=== PATIENT | male | born 1995 | race American Indian/Alaskan Native ===

== ENCOUNTER 2017-02-27 21:44 | Emergency (ER) | payer SELFPAY ==
[2017-02-28] MEDS ORDERED: NACL 0.9% 500 ML IR ONE (03:04)
[2017-02-28] MEDS ORDERED: XYLOCAINE 1% 20 mL INFILTRATI ONE (03:14)
[2017-02-28] MEDS ORDERED: NACL 0.9% IR ONE (03:14)
[2017-02-28] MEDS ORDERED: TRIPLE ANTIBIOTIC TP ONE (03:14)
[2017-02-28] MEDS ORDERED: BOOSTRIX IM ONE (03:14)
[2017-02-28] MEDS ORDERED: MORPHINE IM ONE (03:15)
--- NOTE | 2017-02-28 03:23 | XRay Report ---
FINAL REPORT PROCEDURE: XR HAND 3 RT TECHNIQUE: RIGHT hand radiographs, AP, lateral, and oblique views. CPT 49230-EV HISTORY: Laceration to 2nd, 3rd and 4th digit; r/o FB COMPARISON: No prior studies are available for comparison. FINDINGS: Fracture (s) and/or Dislocation(s): None . Alignment: Normal . Joint space(s): Normal . Soft tissues: Normal . Bone mineralization: Normal . Foreign bodies: None . IMPRESSION: Normal Examination .
--- NOTE | 2017-02-28 05:51 | Emergency Department Report ---
HPI - General Chief Complaint: Wound/Laceration Time Seen by Provider: 02/28/17 03:00 - HPI HPI: 22-year-old male presents today with a laceration to his right hand that occurred at 2100 hrs. yesterday. Patient states he was cutting onions when he cut his index, middle and ring finger of his right hand. Describes his pain as 10 out of 10 and aching pain that comes and goes. Denies trying any medication for pain relief. His tetanus status is unknown. Denies fever, chills, nausea, vomiting, chest pain, shortness of breath, abdominal pain. Positive for bleeding. ED Past Medical Hx - Past Medical History Previous Medical History?: No - Surgical History Past Surgical History?: No - Social History Smoking Status: Never Smoker Substance Use Type: None - Medications Home Medications: Home Medications Medication Instructions Recorded Confirmed Last Taken Type Cyclobenzaprine [Flexeril 10 MG 10 mg PO TID PRN #20 tablet 11/04/15 Unknown Rx TAB] Ibuprofen [Motrin 800 MG tab] 800 mg PO Q8HR PRN #30 tablet 11/04/15 Unknown Rx Acetaminophen/Codeine [Tylenol 1 tab PO Q6H PRN #20 tab 02/28/17 Unknown Rx /Codeine # 3 tab] Cephalexin [Keflex] 500 mg PO Q6HR #20 capsule 02/28/17 Unknown Rx ED Review of Systems ROS: Stated complaint: RT HAND LACERATION/BLEEDING Other details as noted in HPI Constitutional: denies: chills, fever, malaise Eyes: denies: eye pain ENT: denies: ear pain, throat pain, congestion Respiratory: denies: cough, shortness of breath, wheezing Cardiovascular: denies: chest pain, palpitations Endocrine: no symptoms reported Gastrointestinal: denies: abdominal pain, nausea, vomiting Neurological: denies: headache, weakness, numbness, paresthesias Physical Exam - Physical Exam Vital Signs: Vital Signs 02/27/17 02/28/17 23:15 05:18 Temperature 98.6 F Pulse Rate 78 72 Respiratory 16 18 Rate Blood Pressure 141/83 Blood Pressure 128/76 [Left] O2 Sat by Pulse 95 97 Oximetry Physical Exam: GENERAL: The patient is well-developed and well-nourished. Patient is in NAD. HEAD: Normocephalic. Atraumatic. EYES: PERRL. NOSE: Normal nasal mucosa with no nasal discharge. THROAT: No erythema, swelling or exudates. NECK: Supple, nontender, without lymphadenopathy. CHEST/LUNGS: Clear to auscultation throughout. HEART/CARDIOVASCULAR: Regular rate and rhythm. No murmurs, rubs or gallops. ABDOMEN: Abdomen is soft, nontender. Bowel sounds normoactive. No guarding or rebound tenderness. RIGHT HAND: Full wrist and digit range of motion intact. Thumb oposition intact. FDP and FDS tendon intact. Normal sensation. 2 point discrimination intact. Peripheral pulses intact. Capillary refill less than 2 seconds. 1.5 cm laceration noted distal to the DIP joint of index finger. 1.5 cm laceration noted proximal to the DIP joint of middle finger. 1 cm laceration noted proximal to the DIP joint of ring finger. Positive for active bleeding. NEURO: Alert and oriented x 3. Normal gait. ED Course Vital Signs 02/27/17 02/28/17 23:15 05:18 Temperature 98.6 F Pulse Rate 78 72 Respiratory 16 18 Rate Blood Pressure 141/83 Blood Pressure 128/76 [Left] O2 Sat by Pulse 95 97 Oximetry - Laceration /Wound Repair Right Finger Wound Location: upper extremity Wound's Depth, Shape: linear Wound Explored: no foreign body removed Irrigated w/ Saline (ccs): 1,000 Betadine Prep?: Yes Anesthesia: 1% Lidocaine Volume Anesthetic (ccs): 12 Wound Repaired With: sutures Suture Size/Type: 5:0, proline Number of Sutures: 11 Layer Closure?: No Progress: The laceration located on the index finger, measured 1.5 cm and was subcutaneous and linear. The neurovascular exam was intact. Skin was prepped with Betadine. Digital block was obtained using 1% lidocaine. Wound was clean. It was irrigated with saline and explored. No apparent tendon or nerve injury. Unable to approximate the wound fully, therefore 3 loose 5-0 prolene sutures were used to close the wound. The laceration located on the middle finger, measured 1.5 cm and was subcutaneous and linear. The neurovascular exam was intact. Skin was prepped with Betadine. Digital block was obtained using 1% lidocaine. Wound was clean. It was irrigated with saline and explored. No apparent tendon or nerve injury. 5 5-0 prolene sutures were used to close the wound. The laceration located on the ring finger, measured 1 cm and was subcutaneous and linear. The neurovascular exam was intact. Skin was prepped with Betadine. Digital block was obtained using 1% lidocaine. Wound was clean. It was irrigated with saline and explored. No apparent tendon or nerve injury. 3 5-0 prolene sutures were used to close the wound. ED Medical Decision Making - Lab Data Vital Signs 02/27/17 02/28/17 23:15 05:18 Temperature 98.6 F Pulse Rate 78 72 Respiratory 16 18 Rate Blood Pressure 141/83 Blood Pressure 128/76 [Left] O2 Sat by Pulse 95 97 Oximetry - Radiology Data Radiology results: report reviewed Right hand x-rays: No fracture or dislocation. Normal alignment, joint space, soft tissue, bony mineralization. - Medical Decision Making 22-year-old male presents today with a laceration to his index, middle, ring finger that occurred at [address] Fairchild, in regards to inability to approximate the wound. Patient's wounds were examined by Dr. Farrell, he recommended closing the wound the best we can and referring the patient to plastics. 11 5-0 sutures were used to close the wounds. Patient is in no acute distress at this time. He will be discharged home and is encouraged to follow up with a primary care provider. He will be sent home on Tylenol 3 and Keflex and is encouraged to return to the emergency room for any worsening symptoms. Critical care attestation.: If time is entered above; I have spent that time in minutes in the direct care of this critically ill patient, excluding procedure time. ED Disposition Clinical Impression: Hand laceration Qualifiers: Encounter type: initial encounter Foreign body presence: without foreign body Laterality: right Qualified Code(s): S61.411A - Laceration without foreign body of right hand, initial encounter Disposition: DISCHARGED TO HOME OR SELFCARE Is pt being admited?: No Does the pt Need Aspirin: No Condition: Stable Instructions: Finger Laceration (ED), Suture Care (ED) Additional Instructions: Follow-up with primary care provider. Return to the emergency department Prescriptions: Acetaminophen/Codeine [Tylenol /Codeine # 3 tab] 1 tab PO Q6H PRN #20 tab PRN Reason: Pain Cephalexin [Keflex] 500 mg PO Q6HR #20 capsule Referrals: PRIMARY CARE, [Primary Care Provider] - 3-5 Days DIANNA EAGLE MD [Staff Physician] - 3-5 Days Forms: Work/School Release Form(ED) Time of Disposition: 06:01
[2017-02-28] MEDS ORDERED: NORCO 5/325 PO ONE (05:59)
[2017-02-28 06:32] VITALS: BP 132/76
== END 2017-02-28 06:35 | disposition home or self-care (01) ==
LOC: ED 21:44
DX: S61.411A Laceration without foreign body of right hand, initial encounter (principal); S61.210A Laceration without foreign body of right index finger without damage to nail, initial encounter; S61.212A Laceration without foreign body of right middle finger without damage to nail, initial encounter
CPT/HCPCS: 12002; 73130; 90471; 90715; 96372; 99283; J2270; A6250

== ENCOUNTER 2017-03-06 11:14 | Emergency (ER) | payer SELFPAY ==
[2017-03-06 12:20] VITALS: BP 131/86
--- NOTE | 2017-03-06 13:13 | Emergency Department Report ---
Suture/Staple Removal - HPI Chief Complaint: Laceration/Recheck/Suture Stated Complaint: SUTURE REMOVAL Time Seen by Provider: 03/06/17 12:59 When Sutures or Saqib Placed: 5-7 Days Ago Wound Location: R index, middle, long finger ED Review of Systems ROS: Stated complaint: SUTURE REMOVAL Other details as noted in HPI Comment: All other systems reviewed and negative Constitutional: denies: chills, fever Musculoskeletal: other (denies decrease in rom, denies pain ) Skin: as per HPI, other (denies drainage ). denies: change in color ED Past Medical Hx - Past Medical History Previous Medical History?: Yes Additional medical history: right hand lac - Surgical History Past Surgical History?: No - Social History Smoking Status: Current Every Day Smoker Substance Use Type: None - Medications Home Medications: Home Medications Medication Instructions Recorded Confirmed Last Taken Type Cyclobenzaprine [Flexeril 10 MG 10 mg PO TID PRN #20 tablet 11/04/15 Unknown Rx TAB] Ibuprofen [Motrin 800 MG tab] 800 mg PO Q8HR PRN #30 tablet 11/04/15 Unknown Rx Acetaminophen/Codeine [Tylenol 1 tab PO Q6H PRN #20 tab 02/28/17 Unknown Rx /Codeine # 3 tab] Cephalexin [Keflex] 500 mg PO Q6HR #20 capsule 02/28/17 Unknown Rx Suture Removal Exam - Exam General: Vital signs noted. No distress. Alert and acting appropriately. Full ROM of R hand. No tenderness or drainage. Sutures intact. Wound: No Pathologic Erythema, No Tenderness, No Drainage, No Pus, No Wound Dehiscence Other Systems: All other systems reviewed and are unremarkable. ED Course Vital Signs 03/06/17 12:16 Temperature 98.6 F Pulse Rate 75 Respiratory 18 Rate Blood Pressure 131/86 O2 Sat by Pulse 99 Oximetry - Reevaluation(s) Reevaluation #1: 03/06/17 13:13 PT's sutures removed by electronic data interchange specialist. wounds remains intact. pt tolerated procedure well. - Pulse Oximetry Interpretation Digit-Finger Initial Pulse Oximetry Readin Actions Taken: none ED Recheck MDM - Differential Diagnosis Suture/Staple Removal suture removal Critical Care Time: No Critical care attestation.: If time is entered above; I have spent that time in minutes in the direct care of this critically ill patient, excluding procedure time. ED Disposition Clinical Impression: Visit for suture removal Disposition: DISCHARGED TO HOME OR SELFCARE Is pt being admited?: No Does the pt Need Aspirin: No Condition: Stable Instructions: Suture Removal (ED) Referrals: GILDA BRIGGS MD, PHD [Staff Physician] - 3-5 Days Forms: Work/School Release Form(ED) Time of Disposition: 13:14
== END 2017-03-06 13:19 | disposition home or self-care (01) ==
LOC: ED 11:14
DX: Z48.02 Encounter for removal of sutures (principal); F17.200 Nicotine dependence, unspecified, uncomplicated

== ENCOUNTER 2017-10-29 12:59 | Emergency (ER) | payer SELFPAY | END 2017-10-29 14:00 | disposition left against medical advice (07) | LOC: ED 12:59 | DX: Z53.21 Procedure and treatment not carried out due to patient leaving prior to being seen by health care provider (principal) ==

== ENCOUNTER 2018-12-11 08:51 | Emergency (ER) | payer SELFPAY ==
[2018-12-11] MEDS ORDERED: TYLENOL PO ONE (09:08)
--- NOTE | 2018-12-11 09:11 | Emergency Department Report ---
HPI - General Chief Complaint: Headache Time Seen by Provider: 12/11/18 09:08 - HPI HPI: 23-year-old -[place] male presents to the emergency department with the complaint of a 4 to five-day history of a left-sided throbbing headache that he also feels behind his eye. He says that when he leans forward he feels like all of the blood is rushing to his head. He also says that sometimes when he is driving he feels like he has some blurry vision. He denies any fever, nausea, vomiting or any other neurological deficits. He has not taken anything for his symptoms prior to presentation. He does not have a primary care physician. No recent travel or sick contacts at home. He is an occasional tobacco smoker but denies any illicit drug use. ED Past Medical Hx - Past Medical History Previous Medical History?: No Additional medical history: right hand lac - Surgical History Past Surgical History?: No - Social History Smoking Status: Never Smoker Substance Use Type: None - Medications Home Medications: Home Medications Medication Instructions Recorded Confirmed Last Taken Type Cyclobenzaprine [Flexeril 10 MG 10 mg PO TID PRN #20 tablet 11/04/15 Unknown Rx TAB] Acetaminophen/Codeine [Tylenol 1 tab PO Q6H PRN #20 tab 02/28/17 Unknown Rx /Codeine # 3 tab] cephALEXin [Keflex] 500 mg PO Q6HR #20 capsule 02/28/17 Unknown Rx HYDROcodone/APAP 5-325 [[place] 1 each PO Q6HR PRN #10 tablet 12/11/18 Unknown Rx 5/325] Ibuprofen [Motrin 800 MG tab] 800 mg PO Q8HR PRN #30 tablet 12/11/18 Unknown Rx ED Review of Systems ROS: Stated complaint: HEADACHE Other details as noted in HPI Comment: All other systems reviewed and negative Constitutional: denies: chills, fever Eyes: vision change (occasional blurry vision). denies: eye pain ENT: denies: ear pain, throat pain Respiratory: denies: cough, shortness of breath Cardiovascular: denies: chest pain, palpitations Gastrointestinal: denies: abdominal pain, vomiting Genitourinary: denies: dysuria, discharge Musculoskeletal: denies: back pain, arthralgia Skin: denies: rash, lesions Neurological: headache. denies: weakness Physical Exam - Physical Exam Vital Signs: Vital Signs 12/11/18 08:54 Temperature 97.7 F Pulse Rate 88 Respiratory 16 Rate Blood Pressure 146/83 O2 Sat by Pulse 99 Oximetry Physical Exam: GENERAL: The patient is well-developed well-nourished. HEENT: Normocephalic. Atraumatic. Patient has moist mucous membranes. EYES: Extraocular motions are intact. Pupils are equal and reactive to light bilaterally. No nystagmus. NECK: Supple. Trachea is midline. CHEST/LUNGS: Clear to auscultation. There is no respiratory distress noted. HEART/CARDIOVASCULAR: Regular. There is no tachycardia. There is no obvious murmur. ABDOMEN: There is no abdominal distention. SKIN: Skin is warm and dry. NEURO: The patient is awake, alert, and oriented. The patient is cooperative. The patient has no focal neurologic deficits. The patient has normal speech. Cranial nerves II through XII grossly intact. MUSCULOSKELETAL: There is no tenderness or deformity. There is no limitation range of motion. There is no evidence of acute injury. ED Course Vital Signs 12/11/18 08:54 Temperature 97.7 F Pulse Rate 88 Respiratory 16 Rate Blood Pressure 146/83 O2 Sat by Pulse 99 Oximetry ED Medical Decision Making - Radiology Data Radiology results: report reviewed CT HEAD WITHOUT CONTRAST: HISTORY: Headache. TECHNIQUE: Sequential 2.5mm CT images. COMPARISON: 09/12/16. FINDINGS: Cerebral Parenchyma: An 8 mm focal area of decreased density in the right parietal white matter is unchanged since 2016. The etiology of this is unclear. This could represent a chronic focal infarct. The remaining brain parenchyma demonstrates normal attenuation. The taylor-white interface is well defined. Cerebellum: Within normal limits. Brainstem: Within normal limits. Ventricles: Normal. Sella: Normal. Extra-axial spaces: Normal. Basal Cisterns: Normal. Intracranial Hemorrhage: None. Midline Shift: None. Calvarium: Normal. Sinuses: Normal. Mastoid Air Cells: Normal. Visualized Orbits: Normal. IMPRESSION: No acute intracranial process is identified. 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 Transcribed By: TTR Dictated By: MERVAT SANCHEZ JR, MD Electronically Authenticated By: MERVAT SANCHEZ JR, MD Signed Date/Time: 12/11/18 9720 Critical care attestation.: If time is entered above; I have spent that time in minutes in the direct care of this critically ill patient, excluding procedure time. ED Disposition Clinical Impression: Headache Qualifiers: Headache type: unspecified Headache chronicity pattern: unspecified pattern Intractability: not intractable Qualified Code(s): R51 - Headache Disposition: DC-01 TO HOME OR SELFCARE Is pt being admited?: No Condition: Stable Instructions: Acute Headache (ED) Additional Instructions: Please follow up with a primary care physician in the next few days. I am also giving him a referral for a local neurologist, to follow-up regarding her headaches. Return to the emergency Department with any worsening of your symptoms or any acute distress. You have been prescribed a medication that can be sedating. Therefore, this medication cannot be taken prior to driving, working, being responsible for children, and cannot be mixed with alcohol of any quantity. Prescriptions: HYDROcodone/APAP 5-325 [[place] 5/325] 1 each PO Q6HR PRN #10 tablet PRN Reason: Pain Ibuprofen [Motrin 800 MG tab] 800 mg PO Q8HR PRN #30 tablet PRN Reason: pain Referrals: MARY MULLIGAN DO [Staff Physician] - 2-3 Days VETO CESAR MD [Staff Physician] - 2-3 Days [facility] [Outside] - 2-3 Days Time of Disposition: 10:16
--- NOTE | 2018-12-11 09:52 | Cat Scan Report ---
CT HEAD WITHOUT CONTRAST: HISTORY: Headache. TECHNIQUE: Sequential 2.5mm CT images. COMPARISON: 09/12/16. FINDINGS: Cerebral Parenchyma: An 8 mm focal area of decreased density in the right parietal white matter is unchanged since 2016. The etiology of this is unclear. This could represent a chronic focal infarct. The remaining brain parenchyma demonstrates normal attenuation. The taylor-white interface is well defined. Cerebellum: Within normal limits. Brainstem: Within normal limits. Ventricles: Normal. Sella: Normal. Extra-axial spaces: Normal. Basal Cisterns: Normal. Intracranial Hemorrhage: None. Midline Shift: None. Calvarium: Normal. Sinuses: Normal. Mastoid Air Cells: Normal. Visualized Orbits: Normal. IMPRESSION: No acute intracranial process is identified. 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
[2018-12-11 11:55] VITALS: BP 143/88
== END 2018-12-11 11:29 | disposition home or self-care (01) ==
LOC: ED 08:51
DX: R51 Headache (principal); H57.89 Other specified disorders of eye and adnexa
CPT/HCPCS: 70450

== ENCOUNTER 2019-05-10 12:48 | Emergency (ER) | payer SELFPAY ==
[2019-05-10 13:03] VITALS: BP 125/79
--- NOTE | 2019-05-10 14:02 | Emergency Department Report ---
ED Lower Extremity HPI - General Chief Complaint: Extremity Injury, Lower Stated Complaint: LT LEG PAIN Time Seen by Provider: 05/10/19 13:51 Source: patient Mode of arrival: Ambulatory Limitations: No Limitations - History of Present Illness MD Complaint: knee injury, ankle injury, fall -: days(s) (3) Place: work Severity: moderate Severity scale (0 -10): 4 Improves With: nothing Context: fall - Related Data Previous Rx's Medication Instructions Recorded Last Taken Type Cyclobenzaprine [Flexeril 10 MG 10 mg PO TID PRN #20 tablet 11/04/15 Unknown Rx TAB] Acetaminophen/Codeine [Tylenol 1 tab PO Q6H PRN #20 tab 02/28/17 Unknown Rx /Codeine # 3 tab] cephALEXin [Keflex] 500 mg PO Q6HR #20 capsule 02/28/17 Unknown Rx HYDROcodone/APAP 5-325 [[place] 1 each PO Q6HR PRN #10 tablet 12/11/18 Unknown Rx 5/325] Ibuprofen [Motrin 800 MG tab] 800 mg PO Q8HR PRN #30 tablet 12/11/18 Unknown Rx Allergies Allergy/AdvReac Type Severity Reaction Status Date / Time No Known Allergies Allergy Verified 05/10/19 13:03 ED Review of Systems ROS: Stated complaint: LT LEG PAIN Other details as noted in HPI Comment: All other systems reviewed and negative Constitutional: denies: chills, fever Respiratory: denies: cough, shortness of breath Cardiovascular: denies: chest pain Gastrointestinal: denies: abdominal pain, nausea, vomiting Musculoskeletal: denies: back pain ED Past Medical Hx - Past Medical History Additional medical history: right hand lac - Social History Smoking Status: Never Smoker Substance Use Type: None - Medications Home Medications: Home Medications Medication Instructions Recorded Confirmed Last Taken Type Cyclobenzaprine [Flexeril 10 MG 10 mg PO TID PRN #20 tablet 11/04/15 Unknown Rx TAB] Acetaminophen/Codeine [Tylenol 1 tab PO Q6H PRN #20 tab 02/28/17 Unknown Rx /Codeine # 3 tab] cephALEXin [Keflex] 500 mg PO Q6HR #20 capsule 02/28/17 Unknown Rx HYDROcodone/APAP 5-325 [[place] 1 each PO Q6HR PRN #10 tablet 12/11/18 Unknown Rx 5/325] Ibuprofen [Motrin 800 MG tab] 800 mg PO Q8HR PRN #30 tablet 12/11/18 Unknown Rx ED Physical Exam - General Limitations: No Limitations General appearance: alert, in no apparent distress - Head Head exam: Present: atraumatic, normocephalic, normal inspection - Eye Eye exam: Present: normal appearance, PERRL - ENT ENT exam: Present: normal exam, normal orophraynx, mucous membranes moist - Neck Neck exam: Present: normal inspection - Respiratory Respiratory exam: Present: normal lung sounds bilaterally. Absent: chest wall tenderness - Cardiovascular Cardiovascular Exam: Present: regular rate - GI/Abdominal GI/Abdominal exam: Present: soft. Absent: distended, tenderness, guarding - Expanded Lower Extremity Exam Left Knee exam: Present: normal inspection, full ROM, tenderness. Absent: swelling, abrasion, laceration Lower Leg exam: Present: normal inspection, full ROM. Absent: tenderness Ankle exam: Present: normal inspection, full ROM, tenderness. Absent: swelling Gait: Positive: observed and limited by pain - Back Exam Back exam: Present: normal inspection, full ROM. Absent: CVA tenderness (R) - Neurological Exam Neurological exam: Present: alert, oriented X3, CN II-XII intact, reflexes normal. Absent: motor sensory deficit - Skin Skin exam: Present: warm, intact, normal color ED Course Vital Signs 05/10/19 13:02 Temperature 98.3 F Pulse Rate 88 Respiratory 16 Rate Blood Pressure 125/79 O2 Sat by Pulse 97 Oximetry ED Lower Extremity MDM - Radiology Data Radiology results: image reviewed interpreted by me: Left knee and left ankle x-ray is negative for acute finding. Critical care attestation.: If time is entered above; I have spent that time in minutes in the direct care of this critically ill patient, excluding procedure time. ED Disposition Clinical Impression: Knee pain, left, Ankle pain, left Disposition: DC-01 TO HOME OR SELFCARE Is pt being admited?: No Condition: Stable Instructions: Knee Sprain (ED), Ankle Sprain (ED) Referrals: [facility] [Provider Group] - 3-5 Days
--- NOTE | 2019-05-10 15:04 | XRay Report ---
LEFT KNEE 3 VIEWS INDICATION / CLINICAL INFORMATION: fall. COMPARISON: None available. FINDINGS: No fracture, dislocation, or joint effusion. No significant degenerative change. IMPRESSION: Negative exam. Signer Name: Giselle Sepulveda MD Signed: 05/10/2019 2:59 PM Workstation Name: [id number]
--- NOTE | 2019-05-10 15:05 | XRay Report ---
LEFT ANKLE, 3 VIEWS INDICATION / CLINICAL INFORMATION: fall,. COMPARISON: None Findings: No fracture, dislocation, or soft tissue abnormality noted. IMPRESSION: Negative exam. Signer Name: Giselle Sepulveda MD Signed: 05/10/2019 3:01 PM Workstation Name: [id number]
== END 2019-05-10 15:42 | disposition home or self-care (01) ==
LOC: ED 12:48
DX: M25.562 Pain in left knee (principal); M25.572 Pain in left ankle and joints of left foot; Z98.890 Other specified postprocedural states

== ENCOUNTER 2019-08-09 09:23 | Emergency (ER) | payer SELFPAY ==
[2019-08-09] MEDS ORDERED: ZOFRAN ODT PO ONE (09:36)
[2019-08-09] MEDS ORDERED: IBUPROFEN PO ONE (09:36)
--- NOTE | 2019-08-09 09:52 | Emergency Department Report ---
ED General Adult HPI - General Chief complaint: Nausea/Vomiting/Diarrhea Stated complaint: FLU LIKE SYM/CHILLS Time Seen by Provider: 08/09/19 09:31 Source: patient Mode of arrival: Ambulatory Limitations: No Limitations - History of Present Illness Initial comments: This is a 24-year-old male nontoxic, well nourished in appearance, no acute signs of distress presents to the ED with c/o of nausea, vomiting, chills, body aches, rhinorrhea, nasal congestion x2 days. Patient denies any cough. Denies any abdominal or back pains. Deneis any urinary symptoms. Patient denies any sick contacts. Patient denies any recent travels, long car, recent hospital stays. Patient denies any calf pain or calf tenderness. Patient denies any chest pain, short of breath, fever, nausea, vomiting, hemoptysis, numbness, tingling, headache or stiff neck. Denies any allergies or PMH. -: days(s) (2) Radiation: non-radiation Consistency: constant Improves with: none Worsens with: none Associated Symptoms: fever/chills, nausea/vomiting. denies: confusion, chest pain, cough, diaphoresis, headaches, loss of appetite, malaise, rash, seizure, shortness of breath, syncope, weakness - Related Data Previous Rx's Medication Instructions Recorded Last Taken Type Cyclobenzaprine [Flexeril 10 MG 10 mg PO TID PRN #20 tablet 11/04/15 Unknown Rx TAB] Acetaminophen/Codeine [Tylenol 1 tab PO Q6H PRN #20 tab 02/28/17 Unknown Rx /Codeine # 3 tab] cephALEXin [Keflex] 500 mg PO Q6HR #20 capsule 02/28/17 Unknown Rx HYDROcodone/APAP 5-325 [[place] 1 each PO Q6HR PRN #10 tablet 12/11/18 Unknown Rx 5/325] Ibuprofen [Motrin 800 MG tab] 800 mg PO Q8HR PRN #30 tablet 12/11/18 Unknown Rx Naproxen [Naprosyn] 500 mg PO BID #14 tablet 05/10/19 Unknown Rx Ibuprofen [Motrin] 600 mg PO Q8H PRN #20 tablet 08/09/19 Unknown Rx Ondansetron [Zofran Odt] 4 mg PO Q8HR PRN #20 tab.rapdis 08/09/19 Unknown Rx Allergies Allergy/AdvReac Type Severity Reaction Status Date / Time No Known Allergies Allergy Verified 08/09/19 09:24 ED Review of Systems ROS: Stated complaint: FLU LIKE SYM/CHILLS Other details as noted in HPI Constitutional: chills. denies: fever Eyes: denies: eye pain, eye discharge, vision change ENT: denies: ear pain, throat pain Respiratory: denies: cough, shortness of breath, wheezing Cardiovascular: denies: chest pain, palpitations Endocrine: no symptoms reported Gastrointestinal: nausea, vomiting. denies: abdominal pain, diarrhea, constipation, hematemesis, melena, hematochezia Genitourinary: denies: urgency, dysuria Musculoskeletal: denies: back pain, joint swelling, arthralgia Skin: denies: rash, lesions Neurological: denies: headache, weakness, paresthesias Psychiatric: denies: anxiety, depression Hematological/Lymphatic: denies: easy bleeding, easy bruising ED Past Medical Hx - Past Medical History Previous Medical History?: No Additional medical history: right hand lac - Surgical History Past Surgical History?: No - Social History Smoking Status: Never Smoker Substance Use Type: None - Medications Home Medications: Home Medications Medication Instructions Recorded Confirmed Last Taken Type Cyclobenzaprine [Flexeril 10 MG 10 mg PO TID PRN #20 tablet 11/04/15 Unknown Rx TAB] Acetaminophen/Codeine [Tylenol 1 tab PO Q6H PRN #20 tab 02/28/17 Unknown Rx /Codeine # 3 tab] cephALEXin [Keflex] 500 mg PO Q6HR #20 capsule 02/28/17 Unknown Rx HYDROcodone/APAP 5-325 [[place] 1 each PO Q6HR PRN #10 tablet 12/11/18 Unknown Rx 5/325] Ibuprofen [Motrin 800 MG tab] 800 mg PO Q8HR PRN #30 tablet 12/11/18 Unknown Rx Naproxen [Naprosyn] 500 mg PO BID #14 tablet 05/10/19 Unknown Rx Ibuprofen [Motrin] 600 mg PO Q8H PRN #20 tablet 08/09/19 Unknown Rx Ondansetron [Zofran Odt] 4 mg PO Q8HR PRN #20 tab.rapdis 08/09/19 Unknown Rx ED Physical Exam - General Limitations: No Limitations General appearance: alert, in no apparent distress - Head Head exam: Present: atraumatic, normocephalic - Eye Eye exam: Present: normal appearance - Neck Neck exam: Present: normal inspection, full ROM. Absent: tenderness, meningismus, lymphadenopathy - Respiratory Respiratory exam: Present: normal lung sounds bilaterally. Absent: respiratory distress, wheezes, rales, rhonchi, stridor, chest wall tenderness, accessory muscle use, decreased breath sounds, prolonged expiratory - Cardiovascular Cardiovascular Exam: Present: regular rate, normal rhythm, normal heart sounds. Absent: irregular rhythm, systolic murmur, diastolic murmur, rubs, gallop - GI/Abdominal GI/Abdominal exam: Present: soft, normal bowel sounds. Absent: distended, tenderness, guarding, rebound, rigid, diminished bowel sounds - Rectal Rectal exam: Present: deferred - Extremities Exam Extremities exam: Present: normal inspection, full ROM - Back Exam Back exam: Present: normal inspection, full ROM - Neurological Exam Neurological exam: Present: alert, oriented X3, normal gait - Psychiatric Psychiatric exam: Present: normal affect, normal mood - Skin Skin exam: Present: warm, dry, intact, normal color. Absent: rash ED Course Vital Signs 08/09/19 09:25 Temperature 98.8 F Pulse Rate 112 H Respiratory 18 Rate Blood Pressure 145/77 O2 Sat by Pulse 97 Oximetry - Reevaluation(s) Reevaluation #1: 08/09/19 10:47 Patient is speaking in full sentences with no signs of distress noted. ED Medical Decision Making - Lab Data Result diagrams: 08/09/19 09:49 08/09/19 09:49 - Medical Decision Making This is a 24-year-old male that presents with flu like symptoms and nausea and vomiting. Patient is stable and was examined by me. There is no abdominal tenderness. Labs obtained unremarkable. UA obtained. Negative flu swab. Patient is notified of the report with no questions noted by the patient. Vital signs a re stable prior to discharge. Patient received IV fluids, Zofran and Motrin in the ED which patient stated symptoms has resovled and subsided. A by mouth challenge has been obtained and patient tolerated well with no nausea vomiting. Patient was also instructed to Follow-up with a primary care doctor in 3-5 days or if symptoms worsen and continue return to emergency room as soon as possible. At time of discharge, the patient does not seem toxic or ill in appearance. No acute signs of distress noted. Patient agrees to discharge treatment plan of care. No further questions noted by the patient. - Differential Diagnosis viral gastritis, influenza, common cold Critical care attestation.: If time is entered above; I have spent that time in minutes in the direct care of this critically ill patient, excluding procedure time. ED Disposition Clinical Impression: Flu-like symptoms Nausea & vomiting Qualifiers: Vomiting type: unspecified Vomiting Intractability: non-intractable Qualified Code(s): R11.2 - Nausea with vomiting, unspecified Disposition: DC-01 TO HOME OR SELFCARE Is pt being admited?: No Does the pt Need Aspirin: No Condition: Stable Additional Instructions: Follow-up with a primary care doctor in 3-5 days or if symptoms worsen and continue return to emergency room as soon as possible. Increased rest, hydration, and take Motrin/Tylenol as prescribed for fever episode. Prescriptions: Ibuprofen [Motrin] 600 mg PO Q8H PRN #20 tablet PRN Reason: Pain Ondansetron [Zofran Odt] 4 mg PO Q8HR PRN #20 tab.rapdis PRN Reason: Nausea Referrals: PRIMARY CARE, [Primary Care Provider] - 3-5 Days FROYLAN SKELTON MD [Staff Physician] - 3-5 Days [facility] [Outside] - 3-5 Days [facility] [Outside] - 3-5 Days Forms: Work/School Release Form(ED)
[2019-08-09 10:23] LABS: Hematocrit 49.3 % (35.5-45.6); Hemoglobin 17.2 gm/dl (11.8-15.2); Mean Corpuscular HGB Conc 35 % (32-34); Mean Corpuscular Volume 83 fl (84-94); Platelet Count 271 K/mm3 (140-440); Red Cell Distribution Width 13.4 % (13.2-15.2)
[2019-08-09 10:25] LABS: Alanine Aminotransferase 15 units/L (7-56); Albumin 4.1 g/dL (3.9-5); BUN/Creatinine Ratio 8; Blood Urea Nitrogen 8 mg/dL (9-20); Calcium 9.1 mg/dL (8.4-10.2); Hemolysis Index 33
[2019-08-09 10:48] LABS: Bilirubin,Urine SM (Negative); Blood,Urine NEG (Negative); Color,Urine Amber (Yellow); Mucus,Urine 2+ /HPF
[2019-08-09] MEDS ORDERED: NACL 0.9% 1000 ML 1,000 ML IV ONE (10:50)
[2019-08-09 10:54] LABS: Ictotest,Urine Negative (Negative)
[2019-08-09 10:56] LABS: Basophils % (Manual) 0 % (0.0-1.8); Eosinophils % (Manual) 0 % (0.0-4.3); Total Cells Counted 100
[2019-08-09 10:57] LABS: Platelet Estimate Consistent w Auto; RBC Morphology Normal
[2019-08-09 12:07] VITALS: BP 135/68
== END 2019-08-09 12:07 | disposition home or self-care (01) ==
LOC: ED 09:35
DX: R11.2 Nausea with vomiting, unspecified (principal); Z79.899 Other long term (current) drug therapy
CPT/HCPCS: 36415; 80053; 81001; 83690; 85007; 85025; 87400; 96360; 99283; J7030; Q0162

== ENCOUNTER 2019-11-24 12:48 | Emergency (ER) | payer SELFPAY ==
[2019-11-24] MEDS ORDERED: ACETAMINOPHEN 500 MG TAB PO ONE (13:42)
[2019-11-24] MEDS ORDERED: FAMOTIDINE 20 MG TAB PO ONE (13:42)
[2019-11-24] MEDS ORDERED: IBUPROFEN 400 MG TAB PO ONE (13:42)
--- NOTE | 2019-11-24 13:42 | Emergency Department Report ---
Chief Complaint: Upper Respiratory Infection Stated Complaint: cp muscle aches Time Seen by Provider: 11/24/19 13:41 - HPI History of Present Illness: 24 y/o male with no pe dvt risk factors, perc neg, p/w migratory chest pain + cough appears well "wants to be sure its not my heart" ekg, xr chest pain meds reassess Vital Signs 11/24/19 13:39 Temperature 97.6 F Pulse Rate 87 Respiratory 18 Rate Blood Pressure 151/85 O2 Sat by Pulse 98 Oximetry MSE screening note: Focused history and physical exam performed. Due to findings the following was ordered: ED Disposition for MSE Condition: Stable
--- NOTE | 2019-11-24 14:12 | XRay Report ---
CHEST 2 VIEWS INDICATION / CLINICAL INFORMATION: Chest pain. COMPARISON: None available. FINDINGS: SUPPORT DEVICES: None. HEART / MEDIASTINUM: No significant abnormality. LUNGS / PLEURA: No significant pulmonary or pleural abnormality. No pneumothorax. ADDITIONAL FINDINGS: No significant additional findings. IMPRESSION: 1. No acute findings. Signer Name: Lucien Garnica MD Signed: 11/24/2019 2:08 PM Workstation Name: [id number]
[2019-11-24] MEDS ORDERED: BENZONATATE 100 MG CAP PO ONE (16:48)
[2019-11-24] MEDS ORDERED: IBUPROFEN 800 MG TAB PO ONE (16:48)
--- NOTE | 2019-11-24 17:40 | Emergency Department Report ---
Upper Respiratory HPI - HPI Chief Complaint: Upper Respiratory Infection Stated Complaint: CP Time Seen by Provider: 11/24/19 15:54 Duration: 4 Days URI Symptoms: Rhinorrhea: Yes, Sore Throat: No, Ear Pain: No, Cough: Yes, Shortness of Breath: No, Sick Contacts: No, Unable to Take Fluids: No, Urine Output Abnormal: No, Listless Behavior: No Other History: This is a 24-year-old male nontoxic, well nourished in appearance, no acute signs of distress presents to the ED with c/o of productive cough, rhinorrhea, nasal congestion x4 days. Patient stated started to have chest pains only during coughing and palpation x1 day. Otherwise, patient denies any chest pains during rest. Patient describes productive cough as yellow mucus production. Patient denies any sick contacts. Patient denies any recent travels, long car, recent hospital stays. Patient denies any calf pain or calf tenderness. Patient denies any short of breath, fever, chills, nausea, vomiting, hemoptysis, numbness, tingling, headache or stiff neck. Patient denies any allergies or significant PMH. - Home Meds and Allergies Home Medications: Previous Rx's Medication Instructions Recorded Last Taken Type Cyclobenzaprine [Flexeril 10 MG 10 mg PO TID PRN #20 tablet 11/04/15 Unknown Rx TAB] Acetaminophen/Codeine [Tylenol 1 tab PO Q6H PRN #20 tab 02/28/17 Unknown Rx /Codeine # 3 tab] cephALEXin [Keflex] 500 mg PO Q6HR #20 capsule 02/28/17 Unknown Rx HYDROcodone/APAP 5-325 [[place] 1 each PO Q6HR PRN #10 tablet 12/11/18 Unknown Rx 5/325] Ibuprofen [Motrin 800 MG tab] 800 mg PO Q8HR PRN #30 tablet 12/11/18 Unknown Rx Naproxen [Naprosyn] 500 mg PO BID #14 tablet 05/10/19 Unknown Rx Ibuprofen [Motrin] 600 mg PO Q8H PRN #20 tablet 08/09/19 Unknown Rx Ondansetron [Zofran Odt] 4 mg PO Q8HR PRN #20 tab.rapdis 08/09/19 Unknown Rx Acetaminophen/Codeine [Tylenol 1 tab PO Q6H PRN #12 tab 11/24/19 Unknown Rx /Codeine # 3 tab] Azithromycin [Zithromax Z-DWAIN] 250 mg PO DAILY #6 tablet 11/24/19 Unknown Rx Prednisone [predniSONE 10 mg 10 mg PO .TAPER #1 tab.ds.pk 11/24/19 Unknown Rx (6-Day Pack, 21 Tabs)] Allergies/Adverse Reactions: Allergies Allergy/AdvReac Type Severity Reaction Status Date / Time No Known Allergies Allergy Verified 08/09/19 09:24 ED Review of Systems ROS: Stated complaint: CP Other details as noted in HPI Constitutional: denies: chills, fever Eyes: denies: eye pain, eye discharge, vision change ENT: congestion. denies: ear pain, throat pain Respiratory: cough. denies: shortness of breath, wheezing Cardiovascular: chest pain. denies: palpitations Endocrine: no symptoms reported Gastrointestinal: denies: abdominal pain, nausea, diarrhea Genitourinary: denies: urgency, dysuria Musculoskeletal: denies: back pain, joint swelling, arthralgia Skin: denies: rash, lesions Neurological: denies: headache, weakness, paresthesias Psychiatric: denies: anxiety, depression Hematological/Lymphatic: denies: easy bleeding, easy bruising ED Past Medical Hx - Past Medical History Previous Medical History?: No Additional medical history: right hand lac - Surgical History Past Surgical History?: No - Social History Smoking Status: Never Smoker Substance Use Type: Marijuana - Medications Home Medications: Home Medications Medication Instructions Recorded Confirmed Last Taken Type Cyclobenzaprine [Flexeril 10 MG 10 mg PO TID PRN #20 tablet 11/04/15 Unknown Rx TAB] Acetaminophen/Codeine [Tylenol 1 tab PO Q6H PRN #20 tab 02/28/17 Unknown Rx /Codeine # 3 tab] cephALEXin [Keflex] 500 mg PO Q6HR #20 capsule 02/28/17 Unknown Rx HYDROcodone/APAP 5-325 [[place] 1 each PO Q6HR PRN #10 tablet 12/11/18 Unknown Rx 5/325] Ibuprofen [Motrin 800 MG tab] 800 mg PO Q8HR PRN #30 tablet 12/11/18 Unknown Rx Naproxen [Naprosyn] 500 mg PO BID #14 tablet 05/10/19 Unknown Rx Ibuprofen [Motrin] 600 mg PO Q8H PRN #20 tablet 08/09/19 Unknown Rx Ondansetron [Zofran Odt] 4 mg PO Q8HR PRN #20 tab.rapdis 08/09/19 Unknown Rx Acetaminophen/Codeine [Tylenol 1 tab PO Q6H PRN #12 tab 11/24/19 Unknown Rx /Codeine # 3 tab] Azithromycin [Zithromax Z-DWAIN] 250 mg PO DAILY #6 tablet 11/24/19 Unknown Rx Prednisone [predniSONE 10 mg 10 mg PO .TAPER #1 tab.ds.pk 11/24/19 Unknown Rx (6-Day Pack, 21 Tabs)] ED Bronchiolitis Physical Exam - Exam General: Vital signs noted. No distress. Alert and acting appropriately. Neurologic: Alert and oriented, no deficits. Musculoskeletal: Unremarkable. ED Bronchiolitis Tests - Testing Testing: CXR: Normal/Negative ED Physical Exam - General Limitations: No Limitations General appearance: alert, in no apparent distress - Head Head exam: Present: atraumatic, normocephalic - Eye Eye exam: Present: normal appearance - ENT ENT exam: Present: normal exam, normal orophraynx - Neck Neck exam: Present: normal inspection, full ROM. Absent: tenderness, meningismus, lymphadenopathy - Respiratory Respiratory exam: Present: normal lung sounds bilaterally, chest wall tenderness. Absent: respiratory distress, wheezes, rales, rhonchi, stridor, accessory muscle use, decreased breath sounds, prolonged expiratory - Cardiovascular Cardiovascular Exam: Present: regular rate, normal rhythm, normal heart sounds. Absent: bradycardia, tachycardia, irregular rhythm, systolic murmur, diastolic murmur, rubs, gallop - Extremities Exam Extremities exam: Present: normal inspection, full ROM - Back Exam Back exam: Present: normal inspection, full ROM. Absent: tenderness, CVA tenderness (R), CVA tenderness (L), muscle spasm, paraspinal tenderness, vertebral tenderness, rash noted - Neurological Exam Neurological exam: Present: alert, oriented X3, normal gait - Psychiatric Psychiatric exam: Present: normal affect, normal mood - Skin Skin exam: Present: warm, dry, intact, normal color. Absent: rash ED Course Vital Signs 11/24/19 13:39 Temperature 97.6 F Pulse Rate 87 Respiratory 18 Rate Blood Pressure 151/85 O2 Sat by Pulse 98 Oximetry - Reevaluation(s) Reevaluation #1: 11/24/19 17:38 Patient is speaking in full sentences with no signs of distress noted. ED Medical Decision Making - Medical Decision Making This is a 24-year-old male that presents with bronchitis and costochondritis. Patient is stable and was examined by me. WILLIE and HEART score 0 pints. Wells criteria for DVT/SVT/PE 0 points. EKG normal sinus rhythm with no significant changes in ST. Chest x-ray has been obtained and dictated by radiologist with normal exam. Patient is notified of x-ray results with no questions noted. Patient be treated with azithromycin, prednisone, Tylenol with codeine. Patient was instructed to increase hydration, rest and take Motrin for fever episodes. Patient received medical treatment in the ED which stated symptoms of chest pain has resolved. Vitals stable. Patient is nonfebrile and normal heart rate. Patient was instructed Follow-up with a primary care doctor in 3-5 days or if symptoms worsen and continue return to emergency room as soon as possible. At time time of discharge, the patient does not seem toxic or ill in appearance. No acute signs of distress noted. Patient agrees to discharge treatment plan of care. No further questions noted by the patient. Critical care attestation.: If time is entered above; I have spent that time in minutes in the direct care of this critically ill patient, excluding procedure time. ED Disposition Clinical Impression: Bronchitis, Costochondritis Disposition: -01 TO HOME OR SELFCARE Is pt being admited?: No Does the pt Need Aspirin: No Condition: Stable Instructions: Acute Bronchitis (ED) Additional Instructions: Follow-up with a primary care doctor in 3-5 days or if symptoms worsen and continue return to emergency room as soon as possible. Do not operate any machinery while taking Tylenol with codeine as this may cause drowsiness. Prescriptions: Prednisone [predniSONE 10 mg (6-Day Pack, 21 Tabs)] 10 mg PO .TAPER #1 tab.ds.pk Acetaminophen/Codeine [Tylenol /Codeine # 3 tab] 1 tab PO Q6H PRN #12 tab PRN Reason: Pain, Moderate (4-6) Azithromycin [Zithromax Z-DWAIN] 250 mg PO DAILY #6 tablet Referrals: PRIMARY MD LEW [Primary Care Provider] - 3-5 Days MAHENDRA FELICIANO MD [Staff Physician] - 3-5 Days [facility] [Outside] - 3-5 Days Forms: Work/School Release Form(ED)
[2019-11-24 17:58] VITALS: BP 128/79
== END 2019-11-24 17:57 | disposition home or self-care (01) ==
LOC: ED 12:48
DX: J40 Bronchitis, not specified as acute or chronic (principal); M94.0 Chondrocostal junction syndrome [Tietze]; F12.10 Cannabis abuse, uncomplicated; Z79.899 Other long term (current) drug therapy
CPT/HCPCS: 71046; 93005; 93010

== ENCOUNTER 2020-12-14 17:58 | Emergency (ER) | payer SELFPAY ==
--- NOTE | 2020-12-14 19:17 | XRay Report ---
LEFT HIP 2 VIEWS INDICATION / CLINICAL INFORMATION: Left groin pain, swelling to left hip, pain radiating down left leg. COMPARISON: None available. FINDINGS: BONES and JOINT(S): No acute fracture or subluxation. No significant arthritis. SOFT TISSUES: No significant abnormality. ADDITIONAL FINDINGS: None. IMPRESSION: 1. No acute findings. Signer Name: Malachi Gongora MD Signed: 12/14/2020 7:12 PM Workstation Name: [id number]
--- NOTE | 2020-12-14 20:13 | Emergency Department Report ---
ED Lower Extremity HPI - General Chief Complaint: Extremity Problem,Nontraumatic Stated Complaint: LT LEG PAIN Time Seen by Provider: 12/14/20 18:32 Source: patient Mode of arrival: Ambulatory Limitations: No Limitations - History of Present Illness Initial Comments: This is a 25-year-old male nontoxic, well nourished in appearance, no acute signs of distress presents to the ED with c/o of left hip pain 1 day. Patient stated that while he was at work trying to pick something up got a sharp pain to left hip with radiation to left groin and medial upper thigh. Patient denies any injuries or trauma. Patient denies any testicular pain or swelling. Denies any urinary symptoms. Patient denies any numbness, tingling, fever, chills, nausea, vomiting, chest pain, shortness of breath, headache, stiff neck. Patient denies any joint swelling or joint redness. Patient denies decreased range of motion or abnormal gait. Patient stated pain is upon palpation and resolved with rest. Patient denies any allergies or significant past medical history. MD Complaint: hip injury -: days(s) Injury: Hip: Left Place: work Severity: mild Severity scale (0 -10): 8 Improves With: rest Worsens With: palpation Associated Symptoms: ambulatory. denies: snap/pop sensation, swelling, numbness, tingling, unable to bear weight, able to partially bear weight - Related Data Previous Rx's Medication Instructions Recorded Last Taken Type Cyclobenzaprine [Flexeril 10 MG 10 mg PO TID PRN #20 tablet 11/04/15 Unknown Rx TAB] Acetaminophen/Codeine [Tylenol 1 tab PO Q6H PRN #20 tab 02/28/17 Unknown Rx /Codeine # 3 tab] cephALEXin [Keflex] 500 mg PO Q6HR #20 capsule 02/28/17 Unknown Rx HYDROcodone/APAP 5-325 [[place] 1 each PO Q6HR PRN #10 tablet 12/11/18 Unknown Rx 5/325] Ibuprofen [Motrin 800 MG tab] 800 mg PO Q8HR PRN #30 tablet 12/11/18 Unknown Rx Naproxen [Naprosyn] 500 mg PO BID #14 tablet 05/10/19 Unknown Rx Ibuprofen [Motrin] 600 mg PO Q8H PRN #20 tablet 08/09/19 Unknown Rx Ondansetron [Zofran Odt] 4 mg PO Q8HR PRN #20 tab.rapdis 08/09/19 Unknown Rx Acetaminophen/Codeine [Tylenol 1 tab PO Q6H PRN #12 tab 11/24/19 Unknown Rx /Codeine # 3 tab] Azithromycin [Zithromax Z-DWAIN] 250 mg PO DAILY #6 tablet 11/24/19 Unknown Rx Prednisone [predniSONE 10 mg 10 mg PO .TAPER #1 tab.ds.pk 11/24/19 Unknown Rx (6-Day Pack, 21 Tabs)] Naproxen 500 mg PO Q12H PRN #12 tablet 12/14/20 Unknown Rx Allergies Allergy/AdvReac Type Severity Reaction Status Date / Time No Known Allergies Allergy Verified 12/14/20 18:09 ED Review of Systems ROS: Stated complaint: LT LEG PAIN Other details as noted in HPI Comment: All other systems reviewed and negative Constitutional: denies: chills, fever Eyes: denies: eye pain, eye discharge, vision change ENT: denies: ear pain, throat pain Respiratory: denies: cough, shortness of breath, wheezing Cardiovascular: denies: chest pain, palpitations Endocrine: no symptoms reported Gastrointestinal: denies: abdominal pain, nausea, diarrhea Genitourinary: denies: urgency, dysuria Musculoskeletal: denies: back pain, joint swelling, arthralgia Skin: denies: rash, lesions Neurological: denies: headache, weakness, paresthesias Psychiatric: denies: anxiety, depression Hematological/Lymphatic: denies: easy bleeding, easy bruising ED Past Medical Hx - Past Medical History Additional medical history: right hand lac - Social History Smoking Status: Never Smoker Substance Use Type: None - Medications Home Medications: Home Medications Medication Instructions Recorded Confirmed Last Taken Type Cyclobenzaprine [Flexeril 10 MG 10 mg PO TID PRN #20 tablet 11/04/15 Unknown Rx TAB] Acetaminophen/Codeine [Tylenol 1 tab PO Q6H PRN #20 tab 02/28/17 Unknown Rx /Codeine # 3 tab] cephALEXin [Keflex] 500 mg PO Q6HR #20 capsule 02/28/17 Unknown Rx HYDROcodone/APAP 5-325 [[place] 1 each PO Q6HR PRN #10 tablet 12/11/18 Unknown Rx 5/325] Ibuprofen [Motrin 800 MG tab] 800 mg PO Q8HR PRN #30 tablet 12/11/18 Unknown Rx Naproxen [Naprosyn] 500 mg PO BID #14 tablet 05/10/19 Unknown Rx Ibuprofen [Motrin] 600 mg PO Q8H PRN #20 tablet 08/09/19 Unknown Rx Ondansetron [Zofran Odt] 4 mg PO Q8HR PRN #20 tab.rapdis 08/09/19 Unknown Rx Acetaminophen/Codeine [Tylenol 1 tab PO Q6H PRN #12 tab 11/24/19 Unknown Rx /Codeine # 3 tab] Azithromycin [Zithromax Z-DWAIN] 250 mg PO DAILY #6 tablet 11/24/19 Unknown Rx Prednisone [predniSONE 10 mg 10 mg PO .TAPER #1 tab.ds.pk 11/24/19 Unknown Rx (6-Day Pack, 21 Tabs)] Naproxen 500 mg PO Q12H PRN #12 tablet 12/14/20 Unknown Rx ED Physical Exam - General Limitations: No Limitations General appearance: alert, in no apparent distress - Head Head exam: Present: atraumatic, normocephalic - Eye Eye exam: Present: normal appearance - Neck Neck exam: Present: normal inspection, full ROM - Respiratory Respiratory exam: Absent: respiratory distress - Cardiovascular Cardiovascular Exam: Present: regular rate - exam: Present: normal inspection. Absent: testicular tenderness, urethral discharge, scrotal swelling, vertical testicular lie, circumcision External exam: Present: normal external exam. Absent: erythema, swelling, lesions, lacerations, ecchymosis, bleeding - Extremities Exam Extremities exam: Present: normal inspection, full ROM, tenderness, normal capillary refill. Absent: pedal edema, joint swelling, calf tenderness - Expanded Lower Extremity Exam Left Hip exam: Present: normal inspection, full ROM, tenderness, external rotation, internal rotation, pelvic stability. Absent: swelling, abrasion, laceration, ecchymosis, deformity, crepidus, dislocation, erythema, shortening Upper Leg exam: Present: normal inspection, full ROM, tenderness. Absent: swelling, abrasion, laceration, ecchymosis, deformity, crepidus, dislocation, erythema Knee exam: Present: normal inspection, full ROM. Absent: tenderness, swelling Lower Leg exam: Present: normal inspection, full ROM. Absent: tenderness, swelling Ankle exam: Present: normal inspection, full ROM. Absent: tenderness, swelling Foot/Toe exam: Present: normal inspection, full ROM. Absent: tenderness, swelling Neuro vascular tendon exam: Present: no vascular compromise Gait: Positive: observed and normal 1 - pain here 2 - pain here - Back Exam Back exam: Present: normal inspection, full ROM. Absent: tenderness, CVA tenderness (R), CVA tenderness (L), muscle spasm, paraspinal tenderness, vertebral tenderness, rash noted - Neurological Exam Neurological exam: Present: alert, oriented X3, normal gait - Psychiatric Psychiatric exam: Present: normal affect, normal mood - Skin Skin exam: Present: warm, dry, intact, normal color. Absent: rash ED Course Vital Signs 12/14/20 20:18 Temperature 98.9 F Pulse Rate 86 Respiratory 16 Rate Blood Pressure 134/87 [Left] O2 Sat by Pulse 99 Oximetry - Reevaluation(s) Reevaluation #1: 12/14/20 20:16 Patient is speaking in full sentences with no signs of distress noted. ED Lower Extremity MDM - Radiology Data Referring Physician: SARAH ALEX Patient Name: YAW AVILEZ Date of : 1995 Sex: Male Report Date: 2020-12-14 Report Status: [place] [address] XRay Report Signed Patient: YAW AVILEZ MR#: [id number] : 1995 Acct:[id number] Age/Sex: 25 / M ADM Date: 12/14/20 Loc: ED A ttending Dr: Ordering Physician: SARAH ALEX NP Date of Service: 12/14/20 Procedure(s): XR hip 2-3V LT Accession Number(s): [id number] cc: SARAH ALEX NP Fluoro Time In Minutes: LEFT HIP 2 VIEWS INDICATION / CLINICAL INFORMATION: Left groin pain, swelling to left hip, pain radiating down left leg. COMPARISON: None available. FINDINGS: BONES and JOINT(S): No acute fracture or subluxation. No significant arthritis. SOFT TISSUES: No significant abnormality. ADDITIONAL FINDINGS: None. IMPRESSION: 1. No acute findings. Signer Name: Malachi Gongora MD Signed: 12/14/2020 7:12 PM Workstation Name: [id number] Transcribed By: ALEKSANDER Dictated By: Malachi Gongora MD Electronically Authenticated By: Malachi Gongora MD Signed Date/Time: 12/14/201911 DD/ 11 TD/TT: - Medical Decision Making This is a 25-year-old male that presents with left hip muscle strain. Patient is stable and was examined by me. I referred patient to an orthopedic doctor for further evaluation for possible MRI. X-ray has been obtained and dictated by the radiologist. Patient is notified of the x-ray report with noted by the patient. Patient does have normal gait with no tenderness and no joint swelling. No ecchymosis. no joint redness or swelling. Not warm to touch. No signs of cellulites present. Patient was instructed to RICE therapy. Patient is discharged with Naproxen. At time of discharge, the patient does not seem toxic or ill in appearance. No acute signs of distress noted. Patient agrees to discharge treatment plan of care. No further questions noted by the patient. Critical care attestation.: If time is entered above; I have spent that time in minutes in the direct care of this critically ill patient, excluding procedure time. ED Disposition Clinical Impression: Muscle strain of left hip Qualifiers: Encounter type: initial encounter Qualified Code(s): S76.012A - Strain of muscle, fascia and tendon of left hip, initial encounter Disposition: - TO HOME OR SELFCARE Is pt being admited?: No Does the pt Need Aspirin: No Condition: Stable Instructions: RICE Therapy for Routine Care of Injuries, [id number], Muscle Strain, [id number] Additional Instructions: Follow-up with a orthopedic doctor in 3-5 days or if symptoms worsen and continue return to emergency room as soon as possible. No physical activity or weight bearing to that extremity until cleared by orthopedic doctor Prescriptions: Naproxen 500 mg PO Q12H PRN #12 tablet PRN Reason: Pain , Severe (7-10) Referrals: PRIMARY CARE, [Referring] - 3-5 Days ENOCH MORGAN MD [Staff Physician] - 3-5 Days Forms: Work/School Release Form(ED) Time of Disposition: 20:21
[2020-12-14 20:32] VITALS: BP 134/87
== END 2020-12-14 20:35 | disposition home or self-care (01) ==
LOC: ED 17:58
DX: S76.012A Strain of muscle, fascia and tendon of left hip, initial encounter (principal); Z79.899 Other long term (current) drug therapy; X50.0XXA Overexertion from strenuous movement or load, initial encounter; Y93.89 Activity, other specified; Y92.89 Other specified places as the place of occurrence of the external cause; Y99.8 Other external cause status
CPT/HCPCS: 99283

== ENCOUNTER → 2021-10-15 | Emergency (ER) | payer SELFPAY | LOC: ED 22:31 | DX: R07.9 Chest pain, unspecified (principal); Z53.21 Procedure and treatment not carried out due to patient leaving prior to being seen by health care provider ==

== ENCOUNTER 2021-12-15 04:28 | Emergency (ER) | payer SELFPAY ==
[2021-12-15 05:41] VITALS: BP 152/97
[2021-12-15] MEDS ORDERED: METOCLOPRAMIDE 10 MG/2 ML INJ IM ONE (06:16)
[2021-12-15] MEDS ORDERED: dexAMETHasone 20 MG/5 ML VIAL IM ONE (06:16)
[2021-12-15] MEDS ORDERED: KETOROLAC 30 MG/1 ML INJ IM ONE (06:16)
--- NOTE | 2021-12-15 06:23 | Emergency Department Report ---
ED General Adult HPI - General Chief complaint: Back Pain/Injury Stated complaint: MIGRAINE BACK/LEG PAIN Time Seen by Provider: 12/15/21 05:55 Source: patient Mode of arrival: Ambulatory Limitations: No Limitations - History of Present Illness Initial comments: 26-year-old obese -[place] male presents to the emergency room complaining of a migraine that he has had for 3-4 days with nausea no vomiting or photophobia. Patient states that he took Advil which has relieved some of it. He also complains of lower back pain that radiates down his right buttocks to mid thigh for 2 weeks. 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 Patient denies any injury. Denies any urinary or bowel incontinent. Denies any trauma. No long-term use of steroids no surgeries on his back. Onset/Timin -: days(s) Location: buttocks, right Radiation: extremity, distal Severity scale (0 -10): 4 Associated Symptoms: headaches, nausea/vomiting (No vomiting). denies: chest pain, diaphoresis, fever/chills, shortness of breath, weakness Treatments Prior to Arrival: none - Related Data Previous Rx's Medication Instructions Recorded Last Taken Type Cyclobenzaprine [Flexeril 10 MG 10 mg PO TID PRN #20 tablet 11/04/15 Unknown Rx TAB] Acetaminophen/Codeine [Tylenol 1 tab PO Q6H PRN #20 tab 02/28/17 Unknown Rx /Codeine # 3 tab] cephALEXin [Keflex] 500 mg PO Q6HR #20 capsule 02/28/17 Unknown Rx HYDROcodone/APAP 5-325 [[place] 1 each PO Q6HR PRN #10 tablet 12/11/18 Unknown Rx 5/325] Ibuprofen [Motrin 800 MG tab] 800 mg PO Q8HR PRN #30 tablet 12/11/18 Unknown Rx Naproxen [Naprosyn] 500 mg PO BID #14 tablet 05/10/19 Unknown Rx Ibuprofen [Motrin] 600 mg PO Q8H PRN #20 tablet 08/09/19 Unknown Rx Ondansetron [Zofran Odt] 4 mg PO Q8HR PRN #20 tab.rapdis 08/09/19 Unknown Rx Acetaminophen/Codeine [Tylenol 1 tab PO Q6H PRN #12 tab 02/04/20 Unknown Rx /Codeine # 3 tab] Azithromycin [Zithromax Z-DWAIN] 250 mg PO DAILY #6 tablet 11/24/19 Unknown Rx Prednisone [predniSONE 10 mg 10 mg PO .TAPER #1 tab.ds.pk 11/24/19 Unknown Rx (6-Day Pack, 21 Tabs)] Naproxen 500 mg PO Q12H PRN #12 tablet 12/14/20 Unknown Rx Butalb/Acetaminophen/Caffeine 1 cap PO Q8HR PRN #15 cap 12/15/21 Unknown Rx [Fioricet 50-300-40 mg CAP] Naproxen 500 mg PO BID PRN 7 Days #14 tab 12/15/21 Unknown Rx methOCARBAMOL [Robaxin TAB] 750 mg PO BID #14 tab 12/15/21 Unknown Rx Allergies Allergy/AdvReac Type Severity Reaction Status Date / Time No Known Allergies Allergy Verified 12/14/20 18:09 ED Review of Systems ROS: Stated complaint: MIGRAINE BACK/LEG PAIN Other details as noted in HPI Comment: All other systems reviewed and negative ED Past Medical Hx - Past Medical History Previous Medical History?: Yes Hx Headaches / Migraines: Yes Additional medical history: right hand lac - Surgical History Past Surgical History?: No - Social History Smoking Status: Never Smoker Substance Use Type: None - Medications Home Medications: Home Medications Medication Instructions Recorded Confirmed Last Taken Type Cyclobenzaprine [Flexeril 10 MG 10 mg PO TID PRN #20 tablet 11/04/15 Unknown Rx TAB] Acetaminophen/Codeine [Tylenol 1 tab PO Q6H PRN #20 tab 02/28/17 Unknown Rx /Codeine # 3 tab] cephALEXin [Keflex] 500 mg PO Q6HR #20 capsule 02/28/17 Unknown Rx HYDROcodone/APAP 5-325 [[place] 1 each PO Q6HR PRN #10 tablet 12/11/18 Unknown Rx 5/325] Ibuprofen [Motrin 800 MG tab] 800 mg PO Q8HR PRN #30 tablet 12/11/18 Unknown Rx Naproxen [Naprosyn] 500 mg PO BID #14 tablet 05/10/19 Unknown Rx Ibuprofen [Motrin] 600 mg PO Q8H PRN #20 tablet 08/09/19 Unknown Rx Ondansetron [Zofran Odt] 4 mg PO Q8HR PRN #20 tab.rapdis 08/09/19 Unknown Rx Acetaminophen/Codeine [Tylenol 1 tab PO Q6H PRN #12 tab 11/24/19 Unknown Rx /Codeine # 3 tab] Azithromycin [Zithromax Z-DWAIN] 250 mg PO DAILY #6 tablet 11/24/19 Unknown Rx Prednisone [predniSONE 10 mg 10 mg PO .TAPER #1 tab.ds.pk 11/24/19 Unknown Rx (6-Day Pack, 21 Tabs)] Naproxen 500 mg PO Q12H PRN #12 tablet 12/14/20 Unknown Rx Butalb/Acetaminophen/Caffeine 1 cap PO Q8HR PRN #15 cap 12/15/21 Unknown Rx [Fioricet 50-300-40 mg CAP] Naproxen 500 mg PO BID PRN 7 Days #14 tab 12/15/21 Unknown Rx methOCARBAMOL [Robaxin TAB] 750 mg PO BID #14 tab 12/15/21 Unknown Rx ED Physical Exam - General Limitations: No Limitations General appearance: alert, in no apparent distress - Head Head exam: Present: atraumatic, normocephalic - Eye Eye exam: Present: normal appearance - ENT ENT exam: Present: mucous membranes moist - Neck Neck exam: Present: normal inspection - Respiratory Respiratory exam: Present: normal lung sounds bilaterally. Absent: respiratory distress - Cardiovascular Cardiovascular Exam: Present: regular rate, normal rhythm. Absent: systolic murmur, diastolic murmur, rubs, gallop - GI/Abdominal GI/Abdominal exam: Present: soft, normal bowel sounds - Rectal Rectal exam: Present: deferred - Extremities Exam Extremities exam: Present: normal inspection - Back Exam Back exam: Present: full ROM, tenderness - Expanded Back Exam Expanded Back exam: Sciatic Notch Tenderness: Right, Positive Straight Leg Raise: Right - Neurological Exam Neurological exam: Present: alert, oriented X3, CN II-XII intact, normal gait, abnormal gait. Absent: motor sensory deficit - Psychiatric Psychiatric exam: Present: normal affect, normal mood - Skin Skin exam: Present: warm, dry, intact, normal color. Absent: rash ED Course Vital Signs 12/15/21 12/15/21 05:31 06:48 Temperature 98.1 F Pulse Rate 75 Respiratory 17 16 Rate Blood Pressure 152/97 [Right] O2 Sat by Pulse 98 Oximetry ED Medical Decision Making - Medical Decision Making 26-year-old obese -[place] male presents to the emergency room complaining of a migraine that he has had for 3-4 days with nausea no vomiting or photophobia. Patient states that he took Advil which has relieved some of it. He also complains of lower back pain that radiates down his right buttocks to mid thigh for 2 weeks. 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 Patient denies any injury. Denies any urinary or bowel incontinent. Denies any trauma. No long-term use of steroids no surgeries on his back. Toradol 30 mg Dex 10 mg Reglan 10 mg IM has been ordered. Discussed with patient it is most likely sciatica. Discussed with patient that taking medication and getting ahead of the pain is very helpful. Also demonstrated stretches that will help alleviate or improve his pain. Critical care attestation.: If time is entered above; I have spent that time in minutes in the direct care of this critically ill patient, excluding procedure time. ED Disposition Clinical Impression: Migraine, Lumbar back pain with radiculopathy affecting right lower extremity, Sciatica, right side Disposition: 01 HOME / SELF CARE / HOMELESS Is pt being admited?: No Does the pt Need Aspirin: No Condition: Stable Instructions: Migraine Headache, [id number], Sciatica Additional Instructions: Please take medication as prescribed. Do not operate heavy machinery while taking those meds. It is important you follow-up with a primary care provider or internal medicine provider as they are able to help manage you through these complaints. Be sure to increase your water intake. Prescriptions: Butalb/Acetaminophen/Caffeine [Fioricet 50-300-40 mg CAP] 1 cap PO Q8HR PRN #15 cap PRN Reason: Headache Naproxen 500 mg PO BID PRN 7 Days #14 tab PRN Reason: Pain , Severe (7-10) methOCARBAMOL [Robaxin TAB] 750 mg PO BID #14 tab Referrals: MAHENDRA FELICIANO MD [Staff Physician] - 3-5 Days Forms: Work/School Release Form(ED)
== END 2021-12-15 08:29 | disposition home or self-care (01) ==
LOC: ED 04:28
DX: G43.909 Migraine, unspecified, not intractable, without status migrainosus (principal); M54.41 Lumbago with sciatica, right side; Z79.899 Other long term (current) drug therapy
CPT/HCPCS: 96372; 99282; J1100; J1885; J2765